=== PATIENT | male | born 1955 | race Caucasian/White ===

== ENCOUNTER → 2018-05-10 | Outpatient (CLI) | payer OTHER | END | disposition home or self-care (01) | LOC: SHCH 09:08 | PROVIDERS: ATTEND Internal Medicine Cardiovascular Disease | DX: I25.10 Atherosclerotic heart disease of native coronary artery without angina pectoris (principal) | CPT/HCPCS: 93306 ==

== ENCOUNTER → 2018-05-14 | Outpatient (CLI) | payer OTHER ==
[~2018-05-14] VITALS: Ht 175.3 cm; Wt 90.7 kg
[~2018-05-14] MED LIST: REGADENOSON 0.4 MG/5 ML PF SYG IVP SCH
== END | disposition home or self-care (01) ==
LOC: SHCH 08:01 → EDUNIT# 08:30
PROVIDERS: ATTEND Internal Medicine Cardiovascular Disease
DX: I25.10 Atherosclerotic heart disease of native coronary artery without angina pectoris (principal)
CPT/HCPCS: 78452; 93017; 96374; A9500 ×2; J2785

== ENCOUNTER → 2020-12-23 | Outpatient (CLI) | payer OTHER | END | disposition home or self-care (01) | LOC: SHCH 08:42 | PROVIDERS: ATTEND Internal Medicine Cardiovascular Disease | DX: R07.9 Chest pain, unspecified (principal) | CPT/HCPCS: 93306; 93356 ==

== ENCOUNTER → 2021-01-04 | Outpatient (CLI) | payer OTHER ==
[~2021-01-04] VITALS: Ht 175.3 cm; Wt 101.6 kg
== END | disposition home or self-care (01) ==
LOC: SHCH 08:52
PROVIDERS: ATTEND Internal Medicine Cardiovascular Disease
DX: R07.9 Chest pain, unspecified (principal)
CPT/HCPCS: 78452; 93017; 96374; A9500 ×2

== ENCOUNTER 2021-02-16 05:46 | Observation (INO) | payer OTHER ==
[2021-02-14 11:33] LABS: EOSINOPHILS % (AUTO) 7.8 % (0.0-8.0); HEMATOCRIT 44.1 % (42-54); LYMPHOCYTES % (AUTO) 26.4 % (21.0-51.0); MEAN CORPUSCULAR HEMOGLOBIN 31.6 pg (27.0-33.0); MEAN CORPUSCULAR HGB CONC 33.6 g/dL (32.0-36.0); MEAN CORPUSCULAR VOLUME 94.2 fL (79-99); MONOCYTES % (AUTO) 9.1 % (3.0-13.0); NEUTROPHILS % (AUTO) 55.1 % (40.0-77.0); PLATELET COUNT (AUTO) 295 K/uL (130-400); RED BLOOD CELL COUNT(AUTO) 4.68 MIL/uL (4.50-6.20); RED CELL DISTRIBUTION WIDTH 13.1 % (11.0-15.5); WHITE BLOOD COUNT (AUTO) 10.2 K/uL (4.8-10.8)
[2021-02-14 11:38] LABS: APPEARANCE,URINE Clear (CLEAR); BILIRUBIN,URINE Negative (NEGATIVE); COLOR,URINE Yellow (YELLOW); GLUCOSE, URINE (UA) Negative (NEGATIVE); KETONES,URINE Negative (NEGATIVE); LEUKOCYTE ESTERASE ,URINE Negative (NEGATIVE); NITRATE,URINE Negative (NEGATIVE); OCCULT BLOOD,URINE Negative (NEGATIVE); PROTEIN,URINE Negative (NEGATIVE)
[2021-02-14 11:49] LABS: CREATININE 0.9 mg/dL (0.5-1.5); POTASSIUM 4.3 mmol/L (3.5-5.1)
[2021-02-14 11:59] LABS: INR 1.03 (0.85-1.15); PROTHROMBIN TIME 11.2 SEC (9.6-11.6)
[2021-02-14 12:00] LABS: PARTIAL THROMBOPLASTIN TIME 31.3 SEC (26.3-35.5)
[2021-02-15 12:46] VITALS: BP 135/79
[2021-02-16] VITALS (33 sets, daily range): BP systolic 122–156; BP diastolic 50–92
[~2021-02-16] VITALS: Ht 176.5 cm; Wt 98.3 kg
[~2021-02-16 05:46] MED LIST changes: +ASCO500C18 PO; +ASPI-449 PO; +ATOR-2 PO; +CHOL2000 PO; +FOLI0.8T3 PO; +ISOS30TA92 PO; +METO-391 PO; +OMEG-148 PO; +OMEP-420 PO; +POTA99TA21 PO; -REGADENOSON 0.4 MG/5 ML PF SYG IVP SCH; +SUPER B COMPLEX PO; +SYMBICORT IH; +UBID100C45 PO; +ZINC220T4 PO
[2021-02-16] MEDS ORDERED: 0.9%NACL 1000ML 1,000 ML IV ONE (06:01)
[2021-02-16] MEDS ORDERED: NITR0.4T50 SL (06:40)
[2021-02-16] MEDS ORDERED: HEPARIN 10,000 UNIT/10ML (1,000 UNIT/ML) VIAL ONE (07:10)
[2021-02-16] MEDS ORDERED: IOHEXOL-350 50ML VIAL IV ONE (07:10)
[2021-02-16] MEDS ORDERED: IOHEXOL 350 MG/ML 100ML INFUS..BTL IV ONE (07:10)
[2021-02-16] MEDS ORDERED: LIDOCAINE HCL 400MG/20ML VIAL ONE (07:10)
[2021-02-16] MEDS ORDERED: HEPARIN 1,000 UNIT VIAL ONE (07:28)
[2021-02-16] MEDS ORDERED: IOHEXOL-350 75 ML VIAL IV ONE (07:43)
[2021-02-16] MEDS ORDERED: ASPIRIN 325MG EC TAB PO ONE (07:59)
[2021-02-16] MEDS ORDERED: CLOPIDOGREL 300MG TAB ONE (07:59)
[2021-02-16] MEDS ORDERED: 0.9%NACL 1000ML 1,000 ML IV SCH ×2 (08:00→08:15)
[2021-02-16] MEDS ORDERED: NITROGLYCERIN 50MG/D5W 250ML 1 BOT IV PRN (08:15)
[2021-02-16] MEDS ORDERED: TEMAZEPAM 30 MG CAP PO PRN (08:15)
[2021-02-16] MEDS ORDERED: ONDANSETRON 4MG INJ IVP SCH (08:15)
[2021-02-16] MEDS ORDERED: MORPHINE 5 MG/ML VIAL (5MG OR GREATER DOSE) IVP SCH ×2 (08:15)
[2021-02-16] MEDS ORDERED: ONDANSETRON 4MG INJ IVP PRN (08:15)
[2021-02-16] MEDS ORDERED: CLOPIDOGREL 300MG TAB PO SCH (08:15)
[2021-02-16] MEDS ORDERED: NITROGLYCERIN 0.4 MG SL TAB SL PRN (08:30)
[2021-02-16] MEDS: ZINC SULFATE 220 CAPSULE PO SCH (09:00)
[2021-02-16] MEDS: POTASSIUM GLUCONATE PO SCH (09:00)
[2021-02-16] MEDS ORDERED: NON-FORMULARY MEDICATION 1 EACH (Omeprazole 20 MG) PO SCH (09:00)
[2021-02-16] MEDS: ASCORBIC ACID 500 MG TAB PO SCH (09:00)
[2021-02-16] MEDS: **HM** VIT D3 50MCG PO SCH (09:00)
[2021-02-16] MEDS ORDERED: ASPIRIN 81MG CHEW TAB PO SCH (09:00)
[2021-02-16] MEDS: CLOPIDOGREL 75MG TAB PO SCH (09:00)
[2021-02-16] MEDS: VITAMIN B COMPLEX 1 CAPSULE PO SCH (09:00)
[2021-02-16] MEDS: METOPROLOL SUCCINATE 50 MG TAB.SR.24H PO SCH (09:00)
[2021-02-16] MEDS ORDERED: FOLIC ACID 1 MG TABLET PO SCH (09:00)
[2021-02-16] MEDS: PANTOPRAZOLE 40 MG TAB DR PO SCH (09:00)
[2021-02-16] MEDS: ASPIRIN 81 MG EC TAB PO SCH (09:00)
[2021-02-16] MEDS: CO Q10 100 MG PO SCH (09:00)
[2021-02-16] MEDS ORDERED: ACETAMINOPHEN WITH CODEINE 1 TAB TAB ONE ×3 (09:40→17:55)
[2021-02-16] MEDS: SYMBICORT IH SCH ×2 (10:45→21:00)
[2021-02-16] MEDS ORDERED: ALBUTEROL 0.083% 2.5 MG/3 ML INH IH SCH (12:00)
[2021-02-16] MEDS ORDERED: MORPHINE 4 MG SYG ONE (12:01)
[2021-02-16] MEDS ORDERED: MORPHINE 4 MG SYG IVP PRN (12:15)
[2021-02-16] MEDS ORDERED: ATROPINE 1MG SYG IVP ONE (12:33)
[2021-02-16] MEDS: FOLIC ACID 1 MG TABLET PO SCH (14:45)
[2021-02-16] MEDS: THIAMINE HCL 100 MG TABLET PO SCH (14:45)
[2021-02-16] MEDS ORDERED: BUDESONIDE 0.5 MG/2 ML INH IH SCH (18:00)
[2021-02-16] MEDS ORDERED: ISOSORBIDE MONO 30MG SR TAB PO SCH (21:00)
[2021-02-16] MEDS ORDERED: ATORVASTATIN 40 MG TABLET PO SCH (21:00)
[2021-02-16] MEDS: FISH OIL 1000 MG/CAP PO SCH (22:36)
[2021-02-17 03:34] VITALS: BP 111/69
[2021-02-17 05:35] LABS: HEMATOCRIT 38.9 % (42-54); MEAN CORPUSCULAR HEMOGLOBIN 31.3 pg (27.0-33.0); MEAN CORPUSCULAR HGB CONC 33.7 g/dL (32.0-36.0); MEAN CORPUSCULAR VOLUME 92.8 fL (79-99); RED BLOOD CELL COUNT(AUTO) 4.19 MIL/uL (4.50-6.20); RED CELL DISTRIBUTION WIDTH 12.9 % (11.0-15.5); WHITE BLOOD COUNT (AUTO) 9.5 K/uL (4.8-10.8)
[2021-02-17 06:16] LABS: CREATININE 0.9 mg/dL (0.5-1.5); POTASSIUM 3.7 mmol/L (3.5-5.1)
[2021-02-17] MEDS: POTASSIUM GLUCONATE PO SCH (06:49)
[2021-02-17] MEDS: **HM** VIT D3 50MCG PO SCH (06:49)
[2021-02-17] MEDS: CO Q10 100 MG PO SCH (06:49)
[2021-02-17] MEDS: SYMBICORT IH SCH (07:55)
[2021-02-17] MEDS: PANTOPRAZOLE 40 MG TAB DR PO SCH (07:57)
[2021-02-17] MEDS: ASPIRIN 81 MG EC TAB PO SCH (07:57)
[2021-02-17] MEDS: THIAMINE HCL 100 MG TABLET PO SCH (07:57)
[2021-02-17] MEDS: METOPROLOL SUCCINATE 50 MG TAB.SR.24H PO SCH (07:57)
[2021-02-17] MEDS: FOLIC ACID 1 MG TABLET PO SCH (07:57)
[2021-02-17] MEDS: ZINC SULFATE 220 CAPSULE PO SCH (07:57)
[2021-02-17] MEDS: ASCORBIC ACID 500 MG TAB PO SCH (07:58)
[2021-02-17] MEDS: CLOPIDOGREL 75MG TAB PO SCH (07:58)
[2021-02-17] MEDS: VITAMIN B COMPLEX 1 CAPSULE PO SCH (07:58)
[2021-02-17] MEDS: FISH OIL 1000 MG/CAP PO SCH (07:58)
[2021-02-17 09:02] VITALS: BP 117/61
[2021-02-17 11:48] VITALS: BP 116/72
== END 2021-02-17 12:22 | disposition home or self-care (01) ==
LOC: DAH 05:46 → DAHIP 05:47 → 4DH 19:55
PROVIDERS: ADMIT Internal Medicine; ATTEND Internal Medicine
DX: I25.119 Atherosclerotic heart disease of native coronary artery with unspecified angina pectoris (principal); E78.5 Hyperlipidemia, unspecified; F19.90 Other psychoactive substance use, unspecified, uncomplicated; E66.9 Obesity, unspecified; Z68.31 Body mass index [BMI] 31.0-31.9, adult; Z79.51 Long term (current) use of inhaled steroids; Z79.82 Long term (current) use of aspirin; Z79.899 Other long term (current) drug therapy; Z87.891 Personal history of nicotine dependence; Z79.01 Long term (current) use of anticoagulants
CPT/HCPCS: 36415 ×3; 71045; 80048 ×2; 80061; 81003; 85025; 85027; 85610; 85730 ×5; 85732; 93005; 93458; 96361 ×3; 96374; 96375; A4215; A4216; A4221; A4222; A4223 ×3; A4606; A4663; C1725; C1769; C1874; C1887; C1894; C9600; G0378 ×28; J1644 ×3; J2270 ×2; J2405; J3490; J7030; Q9965 ×2; Q9967 ×3; J0461